=== PATIENT | male | born 1960 | race Caucasian/White ===

== ENCOUNTER 2023-11-21 18:37 | Emergency (ER) | payer OTHER, MEDICARE ==
[2023-11-21 19:00] VITALS: BP 176/76; PULSE 48; RESP 16; TEMP 97.7; BMI 23.6
[2023-11-21] MEDS ORDERED: CEPHALEXIN MONOHYDRATE 500 MG CAPSULE (UD) ONE (19:58)
[2023-11-21] MEDS ORDERED: DIPHTH,PERTUSS(ACELL),TET 0.5 ML DISP.SYRIN IM ONE (19:58)
[2023-11-21] MEDS: CEPHALEXIN MONOHYDRATE 500 MG CAPSULE (UD) PO ONE (20:00)
[2023-11-21] MEDS: DIPHTH,PERTUSS(ACELL),TET 0.5 ML DISP.SYRIN IM ONE (20:05)
== END 2023-11-21 20:13 | disposition home or self-care (01) ==
LOC: FER 18:37
PROC: 0XQPXZZ Repair Left Index Finger, External Approach (ICD-10-PCS; principal; 2023-11-21)
PROC: 3E0234Z Introduction of Serum, Toxoid and Vaccine into Muscle, Percutaneous Approach (ICD-10-PCS; 2023-11-21)
DX: S61.211A Laceration without foreign body of left index finger without damage to nail, initial encounter (principal); W26.0XXA Contact with knife, initial encounter
CPT/HCPCS: 12002-25; 90471; 90715; 99284-25

== ENCOUNTER 2023-11-29 06:24 | Emergency (ER) | payer OTHER, MEDICARE ==
[2023-11-29 06:37] VITALS: BP 182/64; PULSE 57; RESP 17; TEMP 98; BMI 23.6
== END 2023-11-29 07:25 | disposition home or self-care (01) ==
LOC: FER 06:24
DX: Z48.02 Encounter for removal of sutures (principal)
CPT/HCPCS: 99281-25